=== PATIENT | female | born 2000 | race African-American/Black ===

== ENCOUNTER 2024-09-07 04:50 | Emergency (ER) | payer MEDICAID ==
[~2024-09-07] VITALS: Ht 157.5 cm; Wt 78.6 kg
[2024-09-07 05:08] VITALS: O2SAT 98
[2024-09-07 05:22] LABS: COVID AG,FIA SOURCE NASAL SWAB
[2024-09-07 05:39] LABS: INFLUENZA TYPE A NEGATIVE FOR TYPE A (NEGATIVE); INFLUENZA TYPE B NEGATIVE FOR TYPE B (NEGATIVE); SARS-COV2 (COVID) ANTIGEN,FIA Negative (Negative)
[2024-09-07] MEDS ORDERED: BENZ-227 PO (06:26)
[2024-09-07] MEDS ORDERED: ALBU18HF12 IH (06:31)
[2024-09-07 06:51] VITALS: BP 119/66; PULSE 65; RESP 14; TEMP 97.3; O2SAT 98
== END 2024-09-07 06:51 | disposition home or self-care (01) ==
LOC: EMS 04:52
DX: J06.9 Acute upper respiratory infection, unspecified (principal); B97.89 Other viral agents as the cause of diseases classified elsewhere; Z20.822 Contact with and (suspected) exposure to COVID-19
CPT/HCPCS: 87804; 99283